=== PATIENT | male | born 1975 | race African-American/Black ===

== ENCOUNTER 2018-05-14 16:30 | Emergency (ER) | payer OTHER ==
[2018-05-14] MEDS ORDERED: TUBERCULIN PPD 5 TU/0.1ML SYRINGE (IN PATIENT USE ONLY) ID ONE (16:38)
--- NOTE | 2018-05-14 16:38 | PDOC ---
Rapid Medical Evaluation Medical Evaluation: Allergies Allergy/AdvReac Type Severity Reaction Status Date / Time No Known Allergies Allergy Verified 03/17/15 00:42 05/14/18 16:36 I have performed a brief in-person evaluation of this patient. The patient presents with chief complaint of exposure to tb. [facility] pd transported and individual who has history of tb. Denies symptoms at present Pertinent physical exam findings NAD even and unlabored breathing I have ordered the following ppd The patient will proceed to the Ed for further evaluation Discharge Disposition - Diagnosis Exposure to TB - Referrals - Patient Instructions - Post Discharge Activity
[2018-05-14 16:39] VITALS: BP 133/68; PULSE 78; TEMP 98.2; BMI 25.7
--- NOTE | 2018-05-14 16:45 | PDOC ---
History of Present Illness - General Chief Complaint: Blood/Body Fluid Exposure [facility] Stated Complaint: EXPOSURE TO TB ([facility]) Time Seen by Provider: 05/14/18 16:40 History Source: Patient Exam Limitations: No Limitations - History of Present Illness Initial Comments: 05/14/18 17:43 The patient is a 42-year-old male in no past medical history who presents to the ER for PPD placement today. Patient states that he was in an hour long car ride with a informant whose boyfriend has TB. They're unsure if he has been exposed this time. Denies fevers, cough, chills and diarrhea. Past History - Travel Traveled outside of the country in the last 30 days: No Close contact w/someone who was outside of country & ill: No - Past Medical History Allergies/Adverse Reactions: Allergies Allergy/AdvReac Type Severity Reaction Status Date / Time No Known Allergies Allergy Verified 05/14/18 16:37 Home Medications: Ambulatory Orders No Home Medications 0 dose .ROUTE UTDICT 10/02/11 COPD: No - Immunization History Td Vaccination: No TDAP Vaccination: No Immunization Up to Date: Yes - Suicide/Smoking/Psychosocial Hx Smoking Status: No Smoking History: Never smoked Have you smoked in the past 12 months: No Number of Cigarettes Smoked Daily: 0 Hx Alcohol Use: No Drug/Substance Use Hx: No Substance Use Type: None Review of Systems - Review of Systems Able to Perform ROS?: Yes Comments:: 05/14/18 17:44 CONSTITUTIONAL: Absent: fever, chills, diaphoresis, generalized weakness, malaise, loss of appetite HEENT: Absent: rhinorrhea, nasal congestion, throat pain, throat swelling, difficulty swallowing, mouth swelling, ear pain, eye pain, visual Changes CARDIOVASCULAR: Absent: chest pain, loss of consciousness, palpitations, irregular heart rate, peripheral edema RESPIRATORY: Absent: cough, shortness of breath, dyspnea with exertion, orthopnea, wheezing, stridor, hemoptysis GASTROINTESTINAL: Absent: abdominal pain, abdominal distension, nausea, vomiting, diarrhea, constipation, melena, hematochezia SKIN: Absent: rash, itching, pallor NEUROLOGIC: Absent: headache, focal weakness or paresthesias, dizziness, unsteady gait, seizure, mental status changes, bladder or bowel incontinence PSYCHIATRIC: Absent: anxiety, depression, suicidal or homicidal ideation, hallucinations. Is the patient limited [place]ic proficient: No *Physical Exam - Vital Signs Last Vital Signs Temp Pulse Resp BP Pulse Ox 98.2 F 78 16 133/68 98 05/14/18 16:37 05/14/18 16:37 05/14/18 16:37 05/14/18 16:37 05/14/18 16:37 - Physical Exam Comments: 05/14/18 17:44 GENERAL: The patient is awake, alert, and fully oriented, in no acute distress. HEAD: Normal with no signs of trauma. EYES: Pupils equal, round and reactive to light, extraocular movements intact, sclera anicteric, conjunctiva clear. EXTREMITIES: Normal range of motion, no edema. NEUROLOGICAL: Normal speech, normal gait. PSYCH: Normal mood, normal affect. SKIN: Warm, Dry, normal turgor, no rashes or lesions noted. Moderate Sedation - Procedure Monitoring Vital Signs: Procedure Monitoring Vital Signs Temperature 98.2 F 05/14/18 16:37 Pulse Rate 78 05/14/18 16:37 Respiratory Rate 16 05/14/18 16:37 Blood Pressure 133/68 05/14/18 16:37 O2 Sat by Pulse Oximetry (%) 98 05/14/18 16:37 Medical Decision Making - Medical Decision Making 05/14/18 17:44 PT is a 42 y/o M who presents to the ED for PPD testing PPD placed in the L forearm Pt with no complaints at this time Informed patient that the test should be read on Monday DC home *DC/Admit/Observation/Transfer Diagnosis at time of Disposition: Exposure to TB - Discharge Dispostion Disposition: HOME Condition at time of disposition: Stable Decision to Admit order: No - Referrals Referrals: Gurpreet Minaya MD [Primary Care Provider] - - Patient Instructions Additional Instructions: You had a PPD test placed in your L forearm today Please follow up with occupational health on Monday to have the test read Return to the ED for fever, cough, difficulty breathing, or if you have any changes in your symptoms - Post Discharge Activity Forms/Work/School Notes: Back to Work
== END 2018-05-14 17:59 | disposition home or self-care (01) ==
LOC: JERFT 16:30
PROC: 3E0134Z Introduction of Serum, Toxoid and Vaccine into Subcutaneous Tissue, Percutaneous Approach (ICD-10-PCS; principal; 2018-05-14)
DX: Z11.1 Encounter for screening for respiratory tuberculosis (principal); Z20.1 Contact with and (suspected) exposure to tuberculosis; Y35.891A Legal intervention involving other specified means, law enforcement official injured, initial encounter; Y93.89 Activity, other specified; Y92.89 Other specified places as the place of occurrence of the external cause; Y99.0 Civilian activity done for income or pay
CPT/HCPCS: 99281-25

== ENCOUNTER 2022-05-31 01:25 | Emergency (ER) | payer OTHER ==
[2022-05-31] MEDS ORDERED: IBUPROFEN 600 MG TABLET (FP) PO ONE ×2 (01:28→01:31)
[2022-05-31 01:31] VITALS: BP 140/84; PULSE 80; RESP 16; TEMP 97.7; BMI 25.7
== END 2022-05-31 02:04 | disposition home or self-care (01) ==
LOC: FER 01:25
DX: S93.401A Sprain of unspecified ligament of right ankle, initial encounter (principal); W01.0XXA Fall on same level from slipping, tripping and stumbling without subsequent striking against object, initial encounter; Y99.0 Civilian activity done for income or pay
CPT/HCPCS: 73610-TC-RT-FY; 99283-25

== ENCOUNTER 2022-09-29 20:44 | Emergency (ER) | payer OTHER ==
[2022-09-29 21:04] VITALS: BP 130/87; PULSE 76; RESP 16; TEMP 98.1; BMI 25.7
== END 2022-09-29 21:07 | disposition home or self-care (01) ==
LOC: FER 20:44
DX: M79.10 Myalgia, unspecified site (principal); V87.7XXA Person injured in collision between other specified motor vehicles (traffic), initial encounter; Y93.I9 Activity, other involving external motion; Y92.9 Unspecified place or not applicable
CPT/HCPCS: 99282-25